=== PATIENT | female | born 1995 | race Caucasian/White ===

== ENCOUNTER → 2016-08-07 | Outpatient (CLI) | payer OTHER ==
[2016-08-07 18:11] LABS: BASO % 0.1 % (0.0-1.0); EOS # 0.1 K/mm3 (0.0-0.50); EOS % 0.6 % (0.0-3.0); LARGE UNSTAINED CELL # 0.2 K/mm3 (0.0-0.4); LARGE UNSTAINED CELL % 1.4 % (0.0-4.0); LYMPH # 1.9 K/mm3 (1.5-6.5); LYMPH % 14.3 % (24.0-44.0); MEAN CORPUSCULAR HEMOGLOBIN 27.2 pg (27.0-33.0); MEAN CORPUSCULAR HGB CONC 32.7 g/dl (32.0-36.5); MEAN CORPUSCULAR VOLUME 83.2 fl (80.0-96.0); MONO # 0.5 K/mm3 (0.0-0.8); MONO % 3.9 % (0.0-5.0); NEUTROPHILS # 10.3 K/mm3 (1.8-7.7); NEUTROPHILS % 79.6 % (36.0-66.0); PLATELET COUNT, AUTOMATED 275 k/mm3 (150-450); RED CELL DISTRIBUTION WIDTH 13.7 % (11.5-14.5); WHITE BLOOD COUNT 12.9 K/mm3 (4.0-10.0)
== END ==
LOC: M SMT 13:27
PROVIDERS: ATTEND Advanced Practice Midwife
DX: Z36 Encounter for antenatal screening of mother (principal); Z34.83 Encounter for supervision of other normal pregnancy, third trimester

== ENCOUNTER → 2016-10-08 | Outpatient (REF) | payer MEDICAID | LOC: M LAB REF 16:52 | PROVIDERS: ATTEND Advanced Practice Midwife | DX: Z34.83 Encounter for supervision of other normal pregnancy, third trimester (principal) ==

== ENCOUNTER 2016-11-06 04:42 | Inpatient (IN) | payer OTHER ==
[~2016-11-06] VITALS: Ht 160 cm; Wt 94.0 kg
[2016-11-06] VITALS (25 sets, daily range): BP systolic 112–148; BP diastolic 63–99
[2016-11-06] MEDS ORDERED: PREN1CHW4 PO (04:55)
[2016-11-06] MEDS ORDERED: miSOPROStol 50 MCG 1/2 TAB (S0191) PO SCH (09:00)
[2016-11-06 09:34] LABS: MEAN CORPUSCULAR HEMOGLOBIN 24.8 pg (27.0-33.0); MEAN CORPUSCULAR HGB CONC 32.2 g/dl (32.0-36.5); MEAN CORPUSCULAR VOLUME 76.8 fl (80.0-96.0); RED CELL DISTRIBUTION WIDTH 15.6 % (11.5-14.5); WHITE BLOOD COUNT 17.3 K/mm3 (4.0-10.0)
[2016-11-06] MEDS ORDERED: PENICILLIN G POTASSIUM IV 5 MU in D5W MINI-BAG PLUS 100 ML IV ONE (11:15)
[2016-11-06] MEDS ORDERED: FENTANYL 2MCG/ML ROPIVACAINE 0.2% IN 0.9% NACL 200ML IVBAG As Ordered ONE (12:25)
[2016-11-06] MEDS ORDERED: FENTANYL/ROPIVACAINE/NACL BAG 200 ML EPIDURAL SCH (13:30)
[2016-11-06] MEDS ORDERED: ONDANSETRON 4MG/2ML VIAL (J2405) IV PRN ×2 (13:30→22:30)
[2016-11-06] MEDS ORDERED: ePHEDrine SULFATE 25 MG/5 ML(5MG/ML) SYRINGE IV PRN (13:30)
[2016-11-06] MEDS ORDERED: NALOXONE INJ 0.4 MG/1 ML VIAL (J2310) IV PRN (13:30)
[2016-11-06] MEDS ORDERED: LACTATED RINGER'S 1000 ML IV PRN (13:30)
[2016-11-06] MEDS ORDERED: diphenhydrAMINE INJ 50MG/ML VIAL (J1200) IV PRN (13:30)
[2016-11-06] MEDS ORDERED: EPIDURAL COMMENT XX SCH (13:30)
[2016-11-06] MEDS ORDERED: EPIDURAL/PCA KEYS XX PRN (13:30)
[2016-11-06] MEDS ORDERED: REFRIGERATOR IV KEYS XX PRN (13:30)
[2016-11-06] MEDS ORDERED: OXYTOCIN DRIP 30 UNITS in APPROPRIATE DILUENT 1 EA IV SCH (13:45)
[2016-11-06] MEDS: PENICILLIN G POTASSIUM IV 2.5 MU in D5W 100 ML IV SCH ×2 (15:18→20:55)
[2016-11-06] MEDS: LR 1,000 ML IV SCH ×3 (15:19→20:55)
[2016-11-06] MEDS ORDERED: ceFAZolin 2 GM/D5W 50 ML IV BAG (J0690) As Ordered ONE (16:31)
[2016-11-06] MEDS ORDERED: BICITRA 30ML SOLN UDC As Ordered ONE (16:32)
[2016-11-06] MEDS ORDERED: OXYTOCIN 30 UNITS IN 0.9% NaCl 500ML IV BAG (J2590) As Ordered ONE (20:45)
--- NOTE | 2016-11-06 21:26 | HPE ---
DATE OF ADMISSION: 11/06/2016 A 21-year-old 1, para 0 female at 40 and 0/7 weeks gestation by last menstrual period (LMP), consistent with 9-week ultrasound, estimated date of confinement (EDC) 11/06/2016, presents with regular contractions and pelvic discomfort. She was noted upon evaluation to have occasional decelerations of heart rate so she was kept for observation. COURSE: The patient initiated care at 13 weeks gestation on 05/06/2016. Her blood pressure was 130/86, weight 192. course significant for depression, and she was restarted on Zoloft during the . The remainder of her course was unremarkable. MEDICAL HISTORY: Noncontributory. SURGICAL HISTORY: 1. Back surgery. 2. Tonsillectomy. ALLERGIES: SULFA. SOCIAL HISTORY: The father of the baby is involved. The patient denies cigarettes, alcohol, or drug use. FAMILY HISTORY: Noncontributory. PHYSICAL EXAMINATION: Blood pressure 134/80. She appears mildly uncomfortable. Head and neck exam: Normal. Lungs: Clear. Heart: Regular rate and rhythm. Abdomen: Nontender, gravid. heart tones: Category 1. Cervix: 2 cm, 80%, -2, vertex. Extremities: Nontender. LABORATORY: Blood type A+, rubella immune, RPR nonreactive. Hepatitis B and C negative. HIV negative. GBS positive. ASSESSMENT: A 21-year-old 1, para 0 at 40 and 0/7 weeks gestation, presents with contractions. The patient is not in labor; however, we are going to commence with labor induction. The patient did have an episode of nonreassuring tracing which has resolved. The patient was admitted on 11/06/2016. Risks of induction were discussed.
[2016-11-06] MEDS ORDERED: fentaNYL 100 MCG/2 ML INJECTION (J3010) As Ordered ONE (21:38)
[2016-11-06] MEDS ORDERED: LIDOCAINE 2% W/EPIN INJ 20ML **PRES FREE As Ordered ONE (21:38)
[2016-11-06] MEDS ORDERED: DOCUSATE SODIUM 100 MG CAP PO PRN (22:30)
[2016-11-06] MEDS ORDERED: ACETAMINOPHEN 500 MG TAB PO PRN (22:30)
[2016-11-06] MEDS ORDERED: DIBUCAINE 1% OINTMENT 30GM TOP PRN (22:30)
[2016-11-06] MEDS ORDERED: MEASLES,MUMPS,RUBELLA VACCINE INJ (MMR-II) (90707) SC SCH (22:30)
[2016-11-06] MEDS ORDERED: RHOGAM 300 MCG (1500 IU) INJ (J2790) IM SCH (22:30)
[2016-11-06] MEDS ORDERED: METHYLERGONOVINE MALEATE 0.2 MG TAB PO PRN (22:30)
[2016-11-06] MEDS ORDERED: OXYTOCIN DRIP 30 UNITS in APPROPRIATE DILUENT 1 EA IV ONE (22:30)
[2016-11-06 23:18] LABS: CORD GAS ABE V -6.1; CORD GAS HCO3 V 21.4 MEQ/L; CORD GAS O2 SAT V 60.4 %; CORD GAS PH V 7.259 UNITS; CORD GAS PO2 V 27.8 mmHg; CORD GAS SBC V 18.6 MEQ/L; CORD GAS TCO2 V 22.9 MEQ/L
[2016-11-06 23:23] LABS: CORD GAS ABE A -4.4; CORD GAS HCO3 A 25.8 MEQ/L; CORD GAS O2 SAT A < 15.0 %; CORD GAS PCO2 A 68.6 mmHg; CORD GAS PH A 7.193 UNITS; CORD GAS PO2 A 10.9 mmHg; CORD GAS TCO2 A 27.9 MEQ/L
[2016-11-07 00:55] VITALS: BP 110/57
--- NOTE | 2016-11-07 01:52 | DN ---
DATE: 11/06/2016 PREDELIVERY DIAGNOSIS: A 40 weeks gestation. POSTDELIVERY DIAGNOSIS: Delivered. PROCEDURE: Spontaneous vaginal delivery. ANIMAL TECHNICIAN: Dr. Rajat Albright ANESTHESIA: Epidural. ESTIMATED BLOOD LOSS: 300 mL. FINDINGS: A 6-pound 3-ounce female infant, scores 7 and 9. DELIVERY SUMMARY: After a 30-minute second stage, patient had a spontaneous delivery of a 6-pound 3-ounce female infant, scores 7 and 9, under epidural anesthesia. Nuchal cord times one was reduced. Light meconium was present. Neonatology was present in the room for delivery. Shoulders delivered spontaneously with ease. The infant cried spontaneously and handed to the mother. The cord was then clamped and cut. Placenta delivered spontaneously and appeared to be intact. Patient received intravenous (IV) Pitocin immediately after delivery of the placenta. First-degree perineal laceration was repaired with #3-0 chromic in the usual fashion. Sponge and needle counts were correct.
[2016-11-07 05:48] VITALS: BP 137/79
[2016-11-07] MEDS: PRENATAL VITAMIN TAB PO SCH (08:53)
[2016-11-07 09:13] VITALS: BP 120/72
[2016-11-07] MEDS: IBUPROFEN 800 MG TAB PO PRN (18:17)
[2016-11-07 18:19] VITALS: BP 105/51
[2016-11-08] MEDS: IBUPROFEN 800 MG TAB PO PRN (05:24)
[2016-11-08 06:48] VITALS: BP 136/84
[2016-11-08] MEDS: PRENATAL VITAMIN TAB PO SCH (08:45)
[2016-11-08] MEDS ORDERED: ACET50TA PO (11:18)
[2016-11-08] MEDS ORDERED: IBUP-1114 PO (11:20)
== END 2016-11-08 12:25 | disposition home or self-care (01) | DRG 560 ==
LOC: M LDO 04:42 → M LDI 08:16 → M OBS 11-07 00:08
PROVIDERS: ADMIT Specialist; ATTEND Specialist
PROC: 10E0XZZ Delivery of Products of Conception, External Approach (ICD-10-PCS; principal; 2016-11-06)
PROC: 0HQ9XZZ Repair Perineum Skin, External Approach (ICD-10-PCS; 2016-11-06)
PROC: 10907ZC Drainage of Amniotic Fluid, Therapeutic from Products of Conception, Via Natural or Artificial Opening (ICD-10-PCS; 2016-11-06)
PROC: 3E0P7GC Introduction of Other Therapeutic Substance into Female Reproductive, Via Natural or Artificial Opening (ICD-10-PCS; 2016-11-06)
DX: O76 Abnormality in fetal heart rate and rhythm complicating labor and delivery (principal); O99.344 Other mental disorders complicating childbirth; F32.9 Major depressive disorder, single episode, unspecified; O99.824 Streptococcus B carrier state complicating childbirth; O77.0 Labor and delivery complicated by meconium in amniotic fluid; O69.81X0 Labor and delivery complicated by cord around neck, without compression, not applicable or unspecified; O70.0 First degree perineal laceration during delivery; Z3A.40 40 weeks gestation of pregnancy; Z37.0 Single live birth

== ENCOUNTER → 2017-07-28 | Outpatient (CLI) | payer OTHER | LOC: M CLY 15:07 | DX: M25.551 Pain in right hip (principal); M54.9 Dorsalgia, unspecified | CPT/HCPCS: 72072 ==

== ENCOUNTER → 2017-10-26 | Outpatient (REF) | payer OTHER ==
[2017-10-26 17:58] LABS: BASO % 0.4 % (0.0-1.0); EOS # 0.2 10^3/uL (0.0-0.50); EOS % 1.4 % (0.0-3.0); HEMATOCRIT 40.9 % (36.0-47.0); HEMOGLOBIN 13.1 g/dl (12.0-15.5); IMMATURE GRANULOCYTE % 0.3 % (0-3.0); LYMPH # 2.9 10^3/uL (1.5-6.5); MEAN CORPUSCULAR HEMOGLOBIN 25.3 pg (27.0-33.0); MONO # 0.6 10^3/uL (0.0-0.8); MONO % 5.1 % (0.0-5.0); NEUTROPHILS # 7.5 10^3/uL (1.8-7.7); NEUTROPHILS % 66.8 % (36.0-66.0); PLATELET COUNT, AUTOMATED 297 10^3/uL (150-450); RED BLOOD COUNT 5.18 10^6/uL (4.00-5.40); RED CELL DISTRIBUTION WIDTH 14.7 % (11.5-14.5); WHITE BLOOD COUNT 11.2 10^3/uL (4.0-10.0)
[2017-10-26 20:04] LABS: CHLAMYDIA DNA AMPLIFICATION NEGATIVE (NEGATIVE); GC DNA AMPLIFICATION NEGATIVE (NEGATIVE)
== END ==
LOC: M LABDRAWC 16:24
DX: Z3A.10 10 weeks gestation of pregnancy (principal); Z34.81 Encounter for supervision of other normal pregnancy, first trimester

== ENCOUNTER → 2017-11-23 | Outpatient (REF) | payer OTHER | LOC: M LAB REF 13:00 | DX: Z34.82 Encounter for supervision of other normal pregnancy, second trimester (principal) ==

== ENCOUNTER → 2017-12-24 | Outpatient (CLI) | payer OTHER | LOC: M SMT 12:56 | DX: Z34.82 Encounter for supervision of other normal pregnancy, second trimester (principal); Z3A.19 19 weeks gestation of pregnancy | CPT/HCPCS: 36415 ==

== ENCOUNTER → 2018-02-19 | Outpatient (CLI) | payer OTHER ==
[2018-02-19 13:03] LABS: BASO % 0.3 % (0.0-1.0); EOS # 0.2 10^3/uL (0.0-0.50); EOS % 1.7 % (0.0-3.0); HEMATOCRIT 36.9 % (36.0-47.0); HEMOGLOBIN 11.9 g/dl (12.0-15.5); IMMATURE GRANULOCYTE % 0.9 % (0-3.0); LYMPH # 2.1 10^3/uL (1.5-6.5); LYMPH % 17.8 % (24.0-44.0); MEAN CORPUSCULAR HEMOGLOBIN 27.7 pg (27.0-33.0); MEAN CORPUSCULAR HGB CONC 32.2 g/dl (32.0-36.5); MEAN CORPUSCULAR VOLUME 85.8 fl (80.0-96.0); MONO # 0.6 10^3/uL (0.0-0.8); MONO % 5.1 % (0.0-5.0); NEUTROPHILS # 8.7 10^3/uL (1.8-7.7); NEUTROPHILS % 74.2 % (36.0-66.0); PLATELET COUNT, AUTOMATED 206 10^3/uL (150-450); RED CELL DISTRIBUTION WIDTH 14.7 % (11.5-14.5); WHITE BLOOD COUNT 11.7 10^3/uL (4.0-10.0)
[2018-02-19 13:50] LABS: GLUCOSE CHALLENGE TEST 1 HOUR 93 MG/DL (LESS THAN 140)
== END ==
LOC: M SMT 11:28
DX: Z34.83 Encounter for supervision of other normal pregnancy, third trimester (principal); Z36.89 Encounter for other specified antenatal screening
CPT/HCPCS: 82950

== ENCOUNTER → 2018-03-02 | Outpatient (CLI) | payer OTHER | LOC: M RAD 12:28 | DX: O36.8121 Decreased fetal movements, second trimester, fetus 1 (principal); Z3A.27 27 weeks gestation of pregnancy | CPT/HCPCS: 76815 ==

== ENCOUNTER → 2018-04-21 | Outpatient (REF) | payer OTHER | LOC: M LAB REF 17:27 | DX: Z34.83 Encounter for supervision of other normal pregnancy, third trimester (principal) ==

== ENCOUNTER 2018-05-15 09:13 | Inpatient (IN) | payer OTHER ==
[2018-05-15] MEDS: PENICILLIN G POTASSIUM IV 5 MU in D5W MINI-BAG PLUS 100 ML IV (12:11)
[2018-05-15 12:12] LABS: HEMATOCRIT 39.7 % (36.0-47.0); HEMOGLOBIN 12.8 g/dl (12.0-15.5); MEAN CORPUSCULAR HEMOGLOBIN 25.5 pg (27.0-33.0); MEAN CORPUSCULAR HGB CONC 32.2 g/dl (32.0-36.5); MEAN CORPUSCULAR VOLUME 79.2 fl (80.0-96.0); PLATELET COUNT, AUTOMATED 199 10^3/uL (150-450); RED BLOOD COUNT 5.01 10^6/uL (4.00-5.40); RED CELL DISTRIBUTION WIDTH 14.4 % (11.5-14.5); WHITE BLOOD COUNT 13.3 10^3/uL (4.0-10.0)
[2018-05-15] MEDS: LR 1,000 ML IV ×2 (12:51→14:24)
[2018-05-15] MEDS: ONDANSETRON 4MG/2ML VIAL (J2405) IV (12:51)
[2018-05-15] MEDS ORDERED: FENTANYL 2MCG/ML ROPIVACAINE 0.2% IN 0.9% NACL 200ML IVBAG As Ordered (14:03)
[2018-05-15] MEDS: FENTANYL/ROPIVACAINE/NACL BAG 200 ML EPIDURAL (14:44)
[2018-05-15] MEDS ORDERED: LACTATED RINGER'S 1000 ML IV (15:00)
[2018-05-15] MEDS ORDERED: ePHEDrine SULFATE 25 MG/5 ML(5MG/ML) SYRINGE IV (15:00)
[2018-05-15] MEDS ORDERED: ONDANSETRON 4MG/2ML VIAL (J2405) IV ×2 (15:00→17:15)
[2018-05-15] MEDS ORDERED: NALOXONE INJ 0.4 MG/1 ML VIAL (J2310) IV (15:00)
[2018-05-15] MEDS ORDERED: EPIDURAL COMMENT XX (15:00)
[2018-05-15] MEDS ORDERED: EPIDURAL/PCA KEYS XX (15:00)
[2018-05-15] MEDS ORDERED: diphenhydrAMINE INJ 50MG/ML VIAL (J1200) IV (15:00)
[2018-05-15] MEDS ORDERED: REFRIGERATOR IV KEYS XX (15:00)
[2018-05-15] MEDS: PENICILLIN G POTASSIUM IV 2.5 MU in APPROPRIATE DILUENT 1 EA IV (15:59)
[2018-05-15] MEDS ORDERED: OXYTOCIN 30 UNITS IN 0.9% NaCl 500ML IV BAG (J2590) As Ordered (16:16)
[2018-05-15] MEDS ORDERED: MOM 30ML SUSPENSION UDC PO (17:15)
[2018-05-15] MEDS ORDERED: ANUSOL HC CREAM 30GM TOP (17:15)
[2018-05-15] MEDS ORDERED: DOCUSATE SODIUM 100 MG CAP PO (17:15)
[2018-05-15] MEDS ORDERED: METHYLERGONOVINE MALEATE 0.2 MG TAB PO (17:15)
[2018-05-15] MEDS ORDERED: DIBUCAINE 1% OINTMENT 30GM TOP (17:15)
[2018-05-15] MEDS: OXYTOCIN DRIP 30 UNITS in APPROPRIATE DILUENT 1 EA IV (17:30)
[2018-05-16] MEDS: ACETAMINOPHEN 500 MG TAB PO (00:34)
[2018-05-16] MEDS: RHOGAM 300 MCG (1500 IU) INJ (J2790) IM (07:15)
[2018-05-16] MEDS: MEASLES,MUMPS,RUBELLA VACCINE INJ (MMR-II) (90707) SC (07:15)
[2018-05-16] MEDS: PRENATAL VITAMINS CHEWABLE TABLET PO (07:37)
[2018-05-16] MEDS: IBUPROFEN 800 MG TAB PO ×2 (07:37→19:22)
[2018-05-17] MEDS: IBUPROFEN 800 MG TAB PO (05:50)
[2018-05-17] MEDS: PRENATAL VITAMINS CHEWABLE TABLET PO (09:06)
== END 2018-05-17 17:45 | disposition home or self-care (01) | DRG 560 ==
LOC: M LDO 09:13 → M LDI 11:26 → M OBS 17:56
PROVIDERS: Obstetrics & Gynecology
PROC: 10E0XZZ Delivery of Products of Conception, External Approach (ICD-10-PCS; principal; 2018-05-15)
DX: O99.824 Streptococcus B carrier state complicating childbirth (principal); Z88.2 Allergy status to sulfonamides; Z37.0 Single live birth; Z3A.39 39 weeks gestation of pregnancy

== ENCOUNTER → 2018-09-28 | Outpatient (REF) | payer OTHER ==
[~2018-09-28] MED LIST: COLA100C5 PO; IBUP-1114 PO; MAPA500T2 PO; MOM30SS PO; PREN1CHW4 PO; PRENTAB9 PO
[2018-09-29 00:01] LABS: CHLAMYDIA DNA AMPLIFICATION NEGATIVE (NEGATIVE); GC DNA AMPLIFICATION NEGATIVE (NEGATIVE)
== END ==
LOC: M LAB REF 17:25
PROVIDERS: ATTEND Advanced Practice Midwife
DX: Z12.4 Encounter for screening for malignant neoplasm of cervix (principal); Z11.3 Encounter for screening for infections with a predominantly sexual mode of transmission

== ENCOUNTER → 2019-03-18 | Outpatient (REF) | payer OTHER ==
[2019-03-18 11:42] LABS: HEMATOCRIT 44.2 % (36.0-47.0); MEAN CORPUSCULAR HEMOGLOBIN 27.1 pg (27.0-33.0); MEAN CORPUSCULAR HGB CONC 31.7 g/dl (32.0-36.5); MEAN CORPUSCULAR VOLUME 85.7 fl (80.0-96.0); PLATELET COUNT, AUTOMATED 296 10^3/uL (150-450); RED BLOOD COUNT 5.16 10^6/uL (4.00-5.40); WHITE BLOOD COUNT 7.5 10^3/uL (4.0-10.0)
[2019-03-18 12:51] LABS: ALBUMIN 3.9 GM/DL (3.2-5.2); ALT/SGPT 26 U/L (12-78); BILIRUBIN,TOTAL 0.5 MG/DL (0.2-1.0); BLOOD UREA NITROGEN 17 MG/DL (7-18); CALCIUM LEVEL 9.3 MG/DL (8.5-10.1); CARBON DIOXIDE LEVEL 29 MEQ/L (21-32); CHLORIDE LEVEL 107 MEQ/L (98-107); CHOLESTEROL LEVEL 211 MG/DL (<200); CHOLESTEROL RISK RATIO 4.586 (<5); CREATININE FOR GFR 0.65 MG/DL (0.55-1.30); GLOMERULAR FILTRATION RATE > 60.0 (>60); GLUCOSE, FASTING 82 MG/DL (70-100); HDL CHOLESTEROL 46 MG/DL (>40); LDL CHOLESTEROL 145 MG/DL (<100); NON-HDL-C 165 MG/DL; POTASSIUM SERUM 4.3 MEQ/L (3.5-5.1); SODIUM LEVEL 141 MEQ/L (136-145); TOTAL 25(OH) VITAMIN D 20.6 NG/ML (30.0-100.0); TRIGLYCERIDES LEVEL 102 MG/DL (<150)
== END ==
LOC: M SFHCCLAY 08:14
PROVIDERS: ATTEND Nurse Practitioner Family
DX: K21.9 Gastro-esophageal reflux disease without esophagitis (principal); F32.9 Major depressive disorder, single episode, unspecified; Z13.6 Encounter for screening for cardiovascular disorders; Z13.21 Encounter for screening for nutritional disorder

== ENCOUNTER → 2019-08-31 | Outpatient (REF) | payer OTHER ==
[2019-08-31 11:13] LABS: CHOLESTEROL RISK RATIO 4.84 (<5)
== END ==
LOC: M SFHCCLAY 07:30
PROVIDERS: ATTEND Nurse Practitioner Family
DX: E78.5 Hyperlipidemia, unspecified (principal); E55.9 Vitamin D deficiency, unspecified

== ENCOUNTER → 2020-01-05 | Outpatient (REF) | payer OTHER ==
[2020-01-05 14:07] LABS: HEMATOCRIT 42.4 % (36.0-47.0); HEMOGLOBIN 13.7 g/dl (12.0-15.5); MEAN CORPUSCULAR HGB CONC 32.3 g/dl (32.0-36.5); MEAN CORPUSCULAR VOLUME 83.6 fl (80.0-96.0); PLATELET COUNT, AUTOMATED 230 10^3/uL (150-450); RED BLOOD COUNT 5.07 10^6/uL (4.00-5.40); WHITE BLOOD COUNT 8.7 10^3/uL (4.0-10.0)
[2020-01-05 14:30] LABS: GLUCOSE CHALLENGE TEST 1 HOUR 54 MG/DL (LESS THAN 140)
[2020-01-05 16:57] LABS: CHLAMYDIA DNA AMPLIFICATION NEGATIVE (NEGATIVE); GC DNA AMPLIFICATION NEGATIVE (NEGATIVE)
[2020-01-06 10:36] LABS: HEPATITIS C VIRUS ABY INDEX 0.2 INDEX (<0.8); HIV 1&2 SCREEN CENTAUR NEGATIVE (NEGATIVE)
== END ==
LOC: M PLALAB 11:10
PROVIDERS: ATTEND Advanced Practice Midwife
DX: O99.211 Obesity complicating pregnancy, first trimester (principal)

== ENCOUNTER → 2020-02-24 | Outpatient (CLI) | payer OTHER ==
--- NOTE | 2020-04-06 10:17 | REP ---
OBSTETRIC SONOGRAPHY HISTORY: Supervision of for anatomy. This report was delayed due to a protracted episode of computer network disruption experienced by this facility. FINDINGS: Scanning through the gravid uterus demonstrates a viable single intrauterine gestation in a variable lie. The placenta is anterior grade 1 and without evidence of placenta previa or abruption. Amniotic fluid is subjectively normal. Closed cervical length measured transabdominally is 4.8 cm. Scan quality is inhibited by maternal body habitus. The following anatomic structures are identified and felt to be unremarkable: cisterna magna, cavum septum, thalami, spine, left- sided stomach, urinary bladder, three-vessel cord, abdominal wall cord insertion, upper and lower extremities, face, and lips. The following additional anatomic structures are less than optimally seen due to position and maternal body habitus: kidneys, four chamber heart with left and right ventricular outflow tract views. BIOMETRY CHART: BPD 42 mm 18 weeks 6 days Head Circumference 163 mm 19 weeks 1 day Abdominal Circumference 143 mm 19 weeks 5 days Femur Length 32 mm 20 weeks 0 days Humeral Length 32 mm 20 weeks 5 days Estimated Weight 307 g 36th percentile IMPRESSION: Viable single intrauterine gestation 19 weeks 3 days by todays composite criteria. Estimated date of delivery (TORRI) by todays sonography 07/27/2020. Four chamber heart, ventricular outflow tract views, and kidneys less than optimally seen. MTDD
== END ==
LOC: M WHC 08:19
PROVIDERS: ATTEND Advanced Practice Midwife
DX: O99.212 Obesity complicating pregnancy, second trimester (principal); Z3A.19 19 weeks gestation of pregnancy

== ENCOUNTER → 2020-03-30 | Outpatient (CLI) | payer OTHER ==
--- NOTE | 2020-04-10 17:13 | REP ---
OBSTETRIC SONOGRAPHY HISTORY: Supervision of . Follow-up anatomy. COMPARISON: 02/24/2020. FINDINGS: Scanning through the gravid uterus demonstrates a single living intrauterine fetus in a breech lie. motion is observed and heart rate is recorded at 147 beats per minute. An anterior grade 1 placenta is seen without evidence of previa or abruption. Amniotic fluid is subjectively normal. Closed cervical length is 3.7 cm viewed transabdominally. Exam quality was inhibited to some degree by maternal body habitus. kidneys, four chamber heart, both right and left ventricular outflow tract views were achieved today and are felt to be unremarkable. BIOMETRY CHART: BPD 5.9 cm 24 weeks 0 days Head circumference 23.1 cm 25 weeks 1 day Abdominal circumference 19.5 cm 24 weeks 2 days Femur length 4.7 cm 25 weeks 3 days Humeral length 4.6 cm 27 weeks 2 days AC/HC ratio 1.18 Normal Cephalic index 0.68 Normal Estimated weight 731 grams, 1 pound 9 ounces, 51st percentile for 24 weeks 6 days. IMPRESSION: Viable single intrauterine gestation at 25 weeks 2 days by todays composite criteria. Estimated date of delivery (TORRI) by todays sonography 07/11/2020. kidneys, four chamber heart, and right and left ventricular outflow tract views are felt to be unremarkable today. MTDD
== END ==
LOC: M WHC 15:42
PROVIDERS: ATTEND Advanced Practice Midwife
DX: Z34.82 Encounter for supervision of other normal pregnancy, second trimester (principal); Z3A.25 25 weeks gestation of pregnancy

== ENCOUNTER → 2020-05-01 | Outpatient (CLI) | payer OTHER ==
[2020-05-01 10:35] LABS: BASO % 0.3 % (0.0-1.0); EOS # 0.2 10^3/uL (0.0-0.5); EOS % 1.9 % (0.0-3.0); HEMATOCRIT 37.1 % (36.0-47.0); HEMOGLOBIN 11.3 g/dl (12.0-15.5); LYMPH # 1.7 10^3/uL (1.5-5.0); LYMPH % 17.3 % (24.0-44.0); MEAN CORPUSCULAR HEMOGLOBIN 25.5 pg (27.0-33.0); MEAN CORPUSCULAR HGB CONC 30.5 g/dl (32.0-36.5); MEAN CORPUSCULAR VOLUME 83.6 fl (80.0-96.0); MONO # 0.6 10^3/uL (0.0-0.8); MONO % 6.7 % (0.0-5.0); NEUTROPHILS % 73.3 % (36.0-66.0); PLATELET COUNT, AUTOMATED 202 10^3/uL (150-450); RED BLOOD COUNT 4.44 10^6/uL (4.00-5.40); WHITE BLOOD COUNT 9.6 10^3/uL (4.0-10.0)
== END ==
LOC: M PLALAB 08:06
PROVIDERS: ATTEND Advanced Practice Midwife
DX: Z34.83 Encounter for supervision of other normal pregnancy, third trimester (principal); Z3A.00 Weeks of gestation of pregnancy not specified

== ENCOUNTER 2020-07-08 23:28 | Inpatient (IN) | payer OTHER ==
[~2020-07-08] VITALS: Ht 160 cm; Wt 93.6 kg
[2020-07-08 23:44] VITALS: BP 132/75
[2020-07-09] VITALS (35 sets, daily range): BP systolic 99–139; BP diastolic 57–83
[2020-07-09 01:12] LABS: HEMATOCRIT 31.7 % (36.0-47.0); HEMOGLOBIN 9.5 g/dl (12.0-15.5); MEAN CORPUSCULAR HEMOGLOBIN 21.9 pg (27.0-33.0); MEAN CORPUSCULAR VOLUME 73.2 fl (80.0-96.0); PLATELET COUNT, AUTOMATED 189 10^3/uL (150-450); RED BLOOD COUNT 4.33 10^6/uL (4.00-5.40); WHITE BLOOD COUNT 9.4 10^3/uL (4.0-10.0)
[2020-07-09] MEDS ORDERED: miSOPROStol 50 MCG 1/2 TAB (S0191) SL SCH (01:15)
[2020-07-09] MEDS ORDERED: VITAD400CA FT (01:19)
[2020-07-09] MEDS ORDERED: OMEP40CA97 PO (01:19)
--- NOTE | 2020-07-09 01:23 | HPEPDOC ---
Obstetrical History & Physical General Date of Admission Jul 09, 2020 at 00:43 History of Present Illness 25 yo female at 39 2/7 weeks by 9 week ultrasound (EDC=07/14/2020) presents with contractions all day. They increased in intensity. No vaginal bleeding. good movement. Chief Complaint: Contractions, term Information Provided By: Patient Age: 25 : 3 Term: 2 Care Care: Good Care Dating Final EDC: Jul 14, 2020 Final EDC by: 1st trimester (US) Past Medical History Past Obstetrical History : Past Obstetrical History: Multigravida Past Medical History Medical History OB history: TSVD x 2 Medical hx: none Surgery: Back surgery Social History Marital Status: Family situation: Spouse/partner home Allergies Coded Allergies: Sulfa (Sulfonamide Antibiotics) (Verified Allergy, Intermediate, RASH, 07/09/20) Medications Scheduled No.137/Iron/Folic Acd ( Vitamin Tablet) 1 Tab Tab, 1 TAB PO DAILY Scheduled PRN Acetaminophen (Mapap) 500 Mg Tab, 1,000 MG PO Q6HP PRN for PAIN SCALE 1-5 Docusate Sodium (Colace) 100 Mg Cap, 100 MG PO QHSP PRN for CONSTIPATION Ibuprofen (Ibuprofen) 400 Mg Tab, 800 MG PO Q8HP PRN for PAIN SCALE 6-10 Milk Of Magnesia (Milk of Magnesia) 30 Ml Conc, 1 TBS PO DAILYPRN PRN for CONSTIPATION Physical Examination Physical Examination GENERAL: Alert and oriented times three. BREAST: . ABDOMEN: Gravid and non-tender to touch. FETUS: Is vertex (VTX) by sterile vaginal examination (SVE), fetus is vertex (VTX) by Santiago. HEART RATE: Regular rate and rhythm. LUNGS: Clear to auscultation (CTA). EXTREMITIES: No edema. No clonus. Deep tendon reflexes (DTRs) + . Vital Signs/I&O Vital Signs Date Time Temp Pulse Resp B/P (MAP) Pulse Ox O2 Delivery O2 Flow Rate FiO2 07/08/20 23:44 97.2 70 16 132/75 (94) Laboratory Data 24H LABS Laboratory Tests 2 07/09/20 00:58: Serology Scanned Report Hepatitis B Testing 07/09/20 01:00: Nucleated Red Blood Cells % (auto) 0.0 CBC/BMP Laboratory Tests 12/28/20 01:00 Pertinent Laboratoy Data Group B Streptococcus: Positive Vaginal Examination Dilation: 2cm Effacement: 50% Station: -2 Cervical Consistency: Medium Cervical Position: Posterior Presentation: Cephalic presentation Assessment Variability: Moderate Accelerations: Positive Decelerations: None Tocometer Contractions: Yes Frequency: every 1-5 min. Duration: less than 60 seconds Strength: palpated as mild Assessment/Plan Assessment Pt is a 25-year-old (G)3 para (P)2 at 39+2 weeks by 9-week ultrasound presents to Labor and Delivery (L&D) with contractions. Pt found not to be in active labor. Plan Admit and orient. Fur Dresser and consent. Group B Streptococcus (GBS) negative. Labs and intravenous (IV) per unit protocol. Counseled on induction of labor (IOL). Anticipate [normal spontaneous delivery (). C-S as appropriate. OSCAR LANGE MD Jul 09, 2020 01:23
[2020-07-09] MEDS ORDERED: PENICILLIN G POTASSIUM IV 5 MU in D5W MINI-BAG PLUS 100 ML IV STA (07:56)
[2020-07-09] MEDS ORDERED: LR 1,000 ML IV SCH (08:05)
--- NOTE | 2020-07-09 08:06 | IPNPDOC ---
Obstetrical Progress Note Date of Service Jul 09, 2020 Subjective Mark is starting to feel some contractions more intensely. Reports active movement. Denies LOF, vaginal bleeding. Objective Vital Signs Date Time Temp Pulse Resp B/P (MAP) Pulse Ox O2 Delivery O2 Flow Rate FiO2 07/09/20 06:26 102 18 105/63 (77) 07/08/20 23:44 97.2 Assessment Heart Rate (FHR): 120 Variability: Moderate Accelerations: None Decelerations: None Heart Rate Tracing: Category I Tocometer Contractions: Yes Frequency: irregular, every 3-7 min. Duration: greater than 60 seconds Strength: palpated as mild, resting tone palp/soft Assessment and Plan Age: 25 : 3 Term: 2 Pre-term: 0 Abortions: 0 Livin Weeks & Days 39.2 Status: Reassuring Group B Streptococcus: Positive Anticipate: Vaginal Delivery Additional Comments Plan to start GBS Prophylaxis and Pitocin. Clear liquid diet. Activity as tolerated. Continuous EFM. Patient agreeable to plan. NEYDA DURHAM CNM Jul 09, 2020 08:06
[2020-07-09] MEDS ORDERED: OXYTOCIN DRIP 30 UNITS in IV 1 EA IV SCH ×2 (08:15→14:56)
[2020-07-09] MEDS ORDERED: FENTANYL 2MCG/ML ROPIVACAINE 0.2% IN 0.9% NACL 100ML IVBAG As Ordered ONE (10:02)
[2020-07-09] MEDS ORDERED: NALOXONE INJ 0.4MG/1ML VIAL (J2310 PER 1MG) IV PRN (10:30)
[2020-07-09] MEDS ORDERED: ePHEDrine SULFATE 25 MG/5 ML(5MG/ML) SYRINGE IV PRN (10:30)
[2020-07-09] MEDS ORDERED: ONDANSETRON 4MG/2ML VIAL IV PRN (10:30)
[2020-07-09] MEDS ORDERED: diphenhydrAMINE 50MG/ML VIAL (J1200) IV PRN (10:30)
[2020-07-09] MEDS ORDERED: EPIDURAL COMMENT XX SCH (10:30)
[2020-07-09] MEDS ORDERED: REFRIGERATOR IV KEYS XX PRN (10:30)
[2020-07-09] MEDS ORDERED: EPIDURAL/PCA KEYS XX PRN (10:30)
[2020-07-09] MEDS ORDERED: LACTATED RINGER'S 1000 ML IV PRN (10:30)
[2020-07-09] MEDS ORDERED: FENTANYL/ROPIVACAINE/NACL BAG 100 ML EPIDURAL SCH (10:30)
[2020-07-09] MEDS ORDERED: PENICILLIN G POTASSIUM IV 2.5 MU in IV 1 EA IV SCH (12:00)
--- NOTE | 2020-07-09 13:03 | IPNPDOC ---
Obstetrical Progress Note Date of Service Jul 09, 2020 Subjective Mark is comfortable with her epidural. Denies rectal/vaginal pressure. She has received 2 doses of Penicillin G for GBS prophylaxis. Objective Vital Signs Date Time Temp Pulse Resp B/P (MAP) Pulse Ox O2 Delivery O2 Flow Rate FiO2 07/09/20 11:07 69 16 123/68 (86) 07/09/20 07:48 97.1 Assessment Heart Rate (FHR): 120 Variability: Moderate Accelerations: Positive Decelerations: None Heart Rate Tracing: Category I Tocometer Contractions: Yes Frequency: regular, other (2-3) Duration: greater than 60 seconds Strength: palpated as moderate, resting tone palp/soft Sterile Vaginal Examination Dilation: 4 cm Effacement (%): 80% Station: -1 Cervical Consistency: Soft Cervical Position: Middle Postion/Presentation: Cephalic presentation Assessment and Plan Age: 25 : 3 Term: 2 Pre-term: 0 Abortions: 0 Livin Status: Reassuring Group B Streptococcus: Positive Anticipate: Vaginal Delivery Additional Comments SROM for moderate amount of clear fluid. Continue with Pitocin Pitocin at 12mu/min. NEYDA DURHAM CNM Jul 09, 2020 13:02
--- NOTE | 2020-07-09 14:20 | IPNPDOC ---
Obstetrical Progress Note Date of Service Jul 09, 2020 Subjective Reports feeling intense pressure. Crying with contractions. Objective Vital Signs Date Time Temp Pulse Resp B/P (MAP) Pulse Ox O2 Delivery O2 Flow Rate FiO2 07/09/20 13:35 70 18 125/78 (94) 07/09/20 12:30 97.4 Assessment Heart Rate (FHR): 125 Variability: Moderate Accelerations: Positive Decelerations: Variable Heart Rate Tracing: Category II Tocometer Contractions: Yes Frequency: regular, every 2-2 min. Duration: greater than 60 seconds Strength: palpated as strong, resting tone palp/soft Sterile Vaginal Examination Dilation: 8 cm Effacement (%): 100% Station: +1 Cervical Consistency: Soft (very stretchy) Cervical Position: Anterior Postion/Presentation: Cephalic presentation Assessment and Plan Age: 25 : 3 Term: 2 Pre-term: 0 Abortions: 0 Livin Status: Reassuring Group B Streptococcus: Positive Anticipate: Vaginal Delivery Additional Comments Patient moved to hands and knees to facilitate labor and relieve back pressure. Pitocin at 12mu/min. Anticipate RYLEE. NEYDA DURHAM CNM Jul 09, 2020 14:20
--- NOTE | 2020-07-09 14:53 | DNPDOC ---
[facility] Delivery Note Delivery Note DATE OF DELIVERY: 07/09/20 @ 1424 PREDELIVERY DIAGNOSIS: 39-2/7 weeks' gestation and induction of labor. POST DELIVERY DIAGNOSIS: Delivered. PROCEDURE: Spontaneous vaginal delivery. RADIOLOGY SERVICES MANAGER: Neyda Cornell CNM, NELI and MARISABEL Crisostomo ANESTHESIA: Epidural. ESTIMATED BLOOD LOSS: 150 mL. FINDINGS: 7 pound 15 ounce, 3590g Male , Score 9/9, loose nuchal cord times 1. DELIVERY SUMMARY: Mark is a 25-year-old 3 now para 3-0-0-3 who was admitted to labor and delivery for contractions without cervical change, given her obstetrical history an elective IOL was offered and accepted. She received cytotec x1 then Pitocin was started this morning. Received an epidural at 1043 per her request. She progressed and SROM was at 1244 for moderate amount of clear fluid. She reached full dilation at 1422 and began pushing. head delivered in OA with restitution to ROT. Anterior shoulder and corpus following with good maternal pushing efforts. Loose nuchal cord x1 was reduced with delivery of corpus. placed skin to skin on maternal abdomen, vigorous and crying with stimulation. Placenta delivered spontaneously intact, reynaldo mechanism at 1430. IV Pitocin and fundal massage started, fundus firmed at umbilicus with small flow. Perineum, cervix, and vagina examined for lacerations, bilateral labial and perineal abrasions noted to be hemostatic, no repair needed. Sponges counted and correct, no sharps used. Mark plans to breast and bottle feed infant, initiated after delivery. Parents plan to name him "Louie". Mother and infant left in stable condition. NEYDA CORNELL CNM Jul 09, 2020 14:53
[2020-07-09] MEDS ORDERED: METHYLERGONOVINE MALEATE 0.2 MG TAB PO PRN (15:00)
[2020-07-09] MEDS ORDERED: RHOGAM 300 MCG (1500 IU) INJ (J2790) IM SCH (15:00)
[2020-07-09] MEDS ORDERED: DOCUSATE SODIUM 100MG CAPSULE PO PRN (15:00)
[2020-07-09] MEDS ORDERED: ACETAMINOPHEN TAB 650MG DOSE (2X325MG) PO PRN (15:00)
[2020-07-09] MEDS ORDERED: IBUPROFEN 800 MG TAB PO PRN (15:00)
[2020-07-09] MEDS ORDERED: BENZOCAINE 20% HEMORRHOIDAL OINTMENT 28GM TUBE TOP PRN (15:00)
[2020-07-09] MEDS ORDERED: ANUSOL HC CREAM 30GM TOP PRN (15:00)
[2020-07-09] MEDS ORDERED: MEASLES,MUMPS,RUBELLA VACCINE INJ (MMR-II) (90707) SC SCH (15:00)
[2020-07-09] MEDS ORDERED: ACETAMINOPHEN 500 MG TAB PO PRN (15:00)
[2020-07-09] MEDS ORDERED: IBUPROFEN 600MG TAB PO PRN (15:00)
[2020-07-10 06:00] VITALS: BP 114/67
--- NOTE | 2020-07-10 07:14 | IPNPDOC ---
Progress Note Date of Service: Jul 10, 2020 Day#: 1 Progress Note SUBJECT: Mark is a 25-year-old 3 now Para 3-0-0-3 status post uncompl icated spontaneous vaginal delivery at 39-2/7 weeks', doing well day #1. She has been ambulating, voiding spontaneously without issue and tolerating regular diet. Breast feeding without issue, supplementing with formula per her desire. Reports lochia is like a normal period. Patient is ambulating well. Reports some cramping with . Pain well controlled with Tylenol and Motrin. Voiding and stooling without difficulty. Reports having some difficulties in the past with depression and wishes to start her Paxil again. She is planning a tubal ligation, and declined Depo injection today. OBJECTIVE: VITAL SIGNS: Within normal limits, afebrile. Alert and oriented times three. Respiratory: Regular rate, no accessory muscle use. Heart rate: Regular rate and rhythm, no murmurs, rubs or gallops. Abdomen: Fundus firm at U-2. Soft, NTTP. Extremities: No edema, no calf tenderness. Minimal lochia. ASSESSMENT: Day 1 PLAN: 1. Tylenol and Motrin for pain. 2. Encourage breast feeding and ambulation. 3. Restart Paxil today. 4. Routine nursing care 5. Reviewed signs of preeclampsia, mastitis, endometritis, depression, and DVT/PE. Reviewed nothing in the vagina for 6weeks, and return to office in 6 weeks. VS, I&O, 24H, Fishbone Vital Signs/I&O Vital Signs Date Time Temp Pulse Resp B/P (MAP) Pulse Ox O2 Delivery O2 Flow Rate FiO2 07/10/20 06:00 98.3 62 20 114/67 (83) 97 Room Air I&O- Last 24 Hours up to 6 AM 07/10/20 06:00 Intake Total 2558 ml Output Total 2175 ml Balance 383 ml NEYDA DURHAM CNM Jul 10, 2020 07:14
[2020-07-10] MEDS ORDERED: PARO5TAB PO (08:27)
[2020-07-10] MEDS ORDERED: PARoxetine 10MG TABLET PO SCH (09:00)
[2020-07-10] MEDS ORDERED: PRENATAL VITAMINS CHEWABLE TABLET PO SCH (09:00)
[2020-07-10 18:00] VITALS: BP 125/69
== END 2020-07-10 18:56 | disposition home or self-care (01) | DRG 560 ==
LOC: M LDO 23:28 → M LDI 07-09 00:43 → M OBS 07-09 16:00
PROVIDERS: ADMIT Specialist; ATTEND Specialist
PROC: 10E0XZZ Delivery of Products of Conception, External Approach (ICD-10-PCS; principal; 2020-07-09)
PROC: 3E033VJ Introduction of Other Hormone into Peripheral Vein, Percutaneous Approach (ICD-10-PCS; 2020-07-09)
DX: O69.81X0 Labor and delivery complicated by cord around neck, without compression, not applicable or unspecified (principal); Z37.0 Single live birth; Z3A.39 39 weeks gestation of pregnancy

== ENCOUNTER → 2020-08-31 | Outpatient (CLI) | payer OTHER ==
[~2020-08-31] MED LIST changes: +OMEP40CA97 PO; +PARO5TAB PO; +VITAD400CA FT
== END ==
LOC: M LABSMTC 10:12
PROVIDERS: ATTEND Anesthesiology
DX: Z01.812 Encounter for preprocedural laboratory examination (principal); Z20.822 Contact with and (suspected) exposure to COVID-19

== ENCOUNTER 2020-09-05 08:47 | Day surgery (SDC) | payer OTHER ==
[~2020-09-05] VITALS: Ht 160 cm; Wt 87.5 kg
[~2020-09-05 08:47] MED LIST changes: +LIDOCAINE 1% MDV 20ML VIAL SQ PRN; +LR 1,000 ML IV ONE
[2020-09-05 09:23] LABS: HEMOGLOBIN 12.2 g/dl (12.0-15.5); MEAN CORPUSCULAR HEMOGLOBIN 22.7 pg (27.0-33.0); MEAN CORPUSCULAR HGB CONC 29.8 g/dl (32.0-36.5); MEAN CORPUSCULAR VOLUME 76.2 fl (80.0-96.0); PLATELET COUNT, AUTOMATED 273 10^3/uL (150-450); RED BLOOD COUNT 5.38 10^6/uL (4.00-5.40); WHITE BLOOD COUNT 6.1 10^3/uL (4.0-10.0)
[2020-09-05 09:49] LABS: HCG, SERUM QUALITATIVE NEGATIVE (NEGATIVE)
[2020-09-05] MEDS ORDERED: ROCURONIUM BROMIDE 50 MG/5 ML VIAL As Ordered ONE (10:36)
[2020-09-05] MEDS ORDERED: LIDOCAINE 2% 100MG/5ML SDV (FOR ANES.) As Ordered ONE (10:36)
[2020-09-05] MEDS ORDERED: propofoL 200 MG/20 ML VIAL As Ordered ONE (10:36)
[2020-09-05] MEDS ORDERED: MIDAZOLAM INJ 2MG/2ML VIAL (J2250 PER 1MG) As Ordered ONE (10:37)
[2020-09-05] MEDS ORDERED: fentaNYL 250 MCG/5 ML INJECTION (J3010) As Ordered ONE (10:37)
[2020-09-05] MEDS ORDERED: BUPIVACAINE HCL 0.25% 10ML VIAL As Ordered ONE (11:44)
[2020-09-05] MEDS ORDERED: KETOROLAC 60MG 2ML VIAL As Ordered ONE (11:48)
[2020-09-05] MEDS ORDERED: ONDANSETRON 4MG/2ML VIAL As Ordered ONE ×2 (11:48→13:33)
[2020-09-05] MEDS ORDERED: METOCLOPRAMIDE INJ 10MG/2ML VIAL (J2765 PER 1) As Ordered ONE ×2 (11:48→14:46)
[2020-09-05] MEDS ORDERED: ACETAMINOPHEN 1000MG 100ML IV BTL (OFIRMEV) (J0131 PER 10MG) As Ordered ONE (11:48)
[2020-09-05] MEDS ORDERED: dexameTHASONE 4 MG/ML 1ML VIAL (J1100 PER 1MG) As Ordered ONE (11:48)
[2020-09-05] MEDS ORDERED: SUGAMMADEX SODIUM 500 MG/5 ML VIAL (BRIDION) As Ordered ONE (11:50)
[2020-09-05] MEDS ORDERED: DESFLURANE 240 ML INHALANT As Ordered ONE (12:08)
[2020-09-05] MEDS ORDERED: HYDROmorphone HCL 2 MG/ML 1ML VIAL (J1170) As Ordered ONE (12:13)
[2020-09-05] MEDS ORDERED: LACRILUBE (AKWA TEARS) OPHTH OINT 3.5 GM As Ordered ONE (12:33)
[2020-09-05] MEDS ORDERED: IBUP80TA PO (12:41)
--- NOTE | 2020-09-05 12:41 | ROOPDOC ---
[facility] Report Of Operation Report of Operation Date of procedure: 09/05/2020 Preoperative diagnosis: Satisfied parity. Postoperative diagnosis: Same Procedure: Laparoscopic bilateral salpingectomy Anesthesia: Gen. endotracheal Estimated blood loss 10 mL. Intraoperatively, IV fluids replaced 700 mL lactated Ringer's Drains: In and out catheter 250 mL of urine Complications: None Preoperative antibiotics: None indicated Specimens: Bilateral fallopian tubes Intraoperative findings: 150 mL hemoperitoneum was noted upon entry prior to any laparoscopic dissection (suspect either ruptured hemorrhagic ovarian cyst or retrograde menstruation). . No additional bleeding was noted once this was evacuated/suctioned. Normal size, shape, contour of the uterus. Normal adnexa/ovaries bilaterally. Minimal pelvic adhesions Procedure: The patient was counseled and consented on the risks, benefits, indications, and alternatives of the procedure. Informed consent was obtained. She was taken to the operating room with an IV running. She was placed on the operating table in the dorsal supine position. Gen. anesthesia was administered and the airway was secured without any difficulty. A timeout was performed per protocol. She was prepared and draped in the normal sterile fashion. Attention was turned to the pelvis. The bladder was drained with in and out sterile catheter. A speculum was placed into the vagina with good visualization of the cervix. A single- tooth tenaculum was placed on the anterior lip of the cervix and downward traction was applied. The cervix was sequentially dilated with Hugh dilators up to a #16. A ZUMI uterine manipulator was placed without any difficulty. The single-tooth tenaculum was removed. The tenaculum sites were noted to be hemostatic. A sterile glove switch was performed. Attention was turned to the abdomen. A 5mm umbilical incision was made with the 11 blade. Through this incision, a Veress needle was placed into the intraperitoneal cavity. Intraperitoneal placement was confirmed with ease of flow of normal saline, a positive drop test and no return on aspiration. The opening pressure was 2 mmHg. The abdomen was insufflated with 2 L of CO2. The Veress needle was removed. A 5 mm laparoscopic trocar was placed under direct visualization without any difficulty, and intraperitoneal placement was confirmed. No incidental bleeding or injury was evident. The patient was placed in steep Trendelenburg. 2 additional laparoscopic port sites were placed through 5 mm incisions in the lower left quadrant. Each trocar/cannula was placed under direct visualization without any difficulty, incidental bleeding or injury. 150 mL of blood mixed with clot was noted in the pelvis. I suspect this was present preoperatively, it was due to a hemorrhagic cyst or retrograde menstruation. There was no active bleeding noted within the pelvis/abdomen during a thorough inspection of the intra-abdominal cavity.. There was no reaccumulation of blood within the abdomen and pelvis after the blood was evacuated with the suction retail director. Attention was turned to the right fallopian tube. The right fallopian tube was followed out to the fimbriated end, grasped and elevated. The underlying mesosalpinx was sequentially clamped, coagulated and transected, until the level of the cornu was reached. At this level, the fallopian tube was clamped, coagulated and transected, thus amputating the fallopian tube. The fallopian tube was brought through the cannula without any difficulty and sent to pathology for permanent section. Attention was turned to the left fallopian tube. The left fallopian tube was followed out to the fimbriated end, grasped and elevated. The underlying mesosalpinx was sequentially clamped, coagulated and transected, until the level of the cornu was reached. At this level the fallopian tube was clamped, coagulated and transected, thus amputating the fallopian tube. The fallopian tube was brought to the cannula without any difficulty and sent to pathology for permanent section. Both right and left surgical sites were noted to be completely hemostatic. The gas was released from the abdomen. The patient was taken out of Trendelenburg position. The cannulas were removed. The skin incisions were closed with 4-0 Monocryl in subcuticular fashion and reinforced with Dermabond. The uterine manipulator was removed, the vagina was noted to be clear of any sponge or instrument. Sponge, needle and instrument counts were correct per protocol. The patient tolerated the entire procedure very well. She was transferred to the PACU in good and stable condition. DO OBINNA Clark JONATHAN R. DO Sep 05, 2020 12:41
[2020-09-05] MEDS ORDERED: COLA100C5 PO (12:42)
[2020-09-05] MEDS ORDERED: fentaNYL 100 MCG/2 ML INJECTION (J3010) IV PRN (13:05)
[2020-09-05] MEDS ORDERED: LR 1,000 ML IV SCH ×2 (13:05→13:10)
[2020-09-05] MEDS ORDERED: oxyCODONE 5MG TAB PO PRN (13:05)
[2020-09-05] MEDS ORDERED: ONDANSETRON 4MG/2ML VIAL IV PRN (13:40)
[2020-09-05] MEDS ORDERED: METOCLOPRAMIDE INJ 10MG/2ML VIAL (J2765 PER 1) IV ONE (15:15)
[2020-09-05] MEDS ORDERED: OXYC1TAB23 PO (15:40)
[2020-09-05 15:41] VITALS: BP 118/65
== END 2020-09-05 16:06 | disposition home or self-care (01) ==
LOC: M SDC 08:47
PROVIDERS: ATTEND Obstetrics & Gynecology
DX: Z30.2 Encounter for sterilization (principal); E78.5 Hyperlipidemia, unspecified; K21.9 Gastro-esophageal reflux disease without esophagitis; Z88.2 Allergy status to sulfonamides
CPT/HCPCS: 36415; 58661; 84703; 85027; 86850; 86900; 86901; 88302; J0131; J1100; J1170; J1885; J2250; J2405; J2765; J3010

== ENCOUNTER → 2021-01-22 | Outpatient (REF) | payer OTHER ==
[~2021-01-22] MED LIST changes: +IBUP80TA PO; -LIDOCAINE 1% MDV 20ML VIAL SQ PRN; -LR 1,000 ML IV ONE; +OMEP40CA4 PO; -OMEP40CA97 PO; +OXYC1TAB23 PO
[2021-01-22 16:54] LABS: ALT/SGPT 29 U/L (12-78); BILIRUBIN,DIRECT 0.1 MG/DL (0.0-0.2); BILIRUBIN,TOTAL 0.5 MG/DL (0.2-1.0); BLOOD UREA NITROGEN 11 MG/DL (7-18); CALCIUM LEVEL 8.2 MG/DL (8.5-10.1); CARBON DIOXIDE LEVEL 24 MEQ/L (21-32); CHLORIDE LEVEL 111 MEQ/L (98-107); CHOLESTEROL LEVEL 217 MG/DL (<200); CHOLESTEROL RISK RATIO 4.254 (<5); CREATININE FOR GFR 0.55 MG/DL (0.55-1.30); GLOMERULAR FILTRATION RATE > 60.0 (>60); GLUCOSE, FASTING 80 MG/DL (70-100); HDL CHOLESTEROL 51 MG/DL (>40); LDL CHOLESTEROL 153 MG/DL (<100); NON-HDL-C 166 MG/DL; POTASSIUM SERUM 3.9 MEQ/L (3.5-5.1); SODIUM LEVEL 141 MEQ/L (136-145); TOTAL 25(OH) VITAMIN D 29.1 NG/ML (30.0-100.0); TOTAL PROTEIN 7.3 GM/DL (6.4-8.2); TRIGLYCERIDES LEVEL 63 MG/DL (<150)
== END ==
LOC: M SFHCCLAY 11:40
PROVIDERS: ATTEND Family Medicine
DX: E78.5 Hyperlipidemia, unspecified (principal); E55.9 Vitamin D deficiency, unspecified; Z13.1 Encounter for screening for diabetes mellitus

== ENCOUNTER → 2021-04-18 | Outpatient (REF) | payer OTHER, MEDICAID | LOC: M SFHCWAGY 17:45 | PROVIDERS: ATTEND Advanced Practice Midwife | DX: Z12.4 Encounter for screening for malignant neoplasm of cervix (principal) ==

== ENCOUNTER → 2022-07-30 | Outpatient (REF) | payer OTHER | LOC: M PLALAB 16:28 | PROVIDERS: ATTEND Advanced Practice Midwife | DX: Z12.4 Encounter for screening for malignant neoplasm of cervix (principal); R87.610 Atypical squamous cells of undetermined significance on cytologic smear of cervix (ASC-US) ==

== ENCOUNTER → 2023-08-03 | Outpatient (REF) | payer OTHER ==
[2023-08-03 13:00] LABS: ALBUMIN 3.8 G/DL (3.2-5.2); ALKALINE PHOSPHATASE 56 U/L (46-116); ALT/SGPT 20 U/L (7.0-40); AST/SGOT 8 U/L (<34); BILIRUBIN,TOTAL 0.4 MG/DL (0.3-1.2); BLOOD UREA NITROGEN 12 MG/DL (9-23); CALCIUM LEVEL 9.4 MG/DL (8.5-10.1); CARBON DIOXIDE LEVEL 27 MMOL/L (20-31); CHLORIDE LEVEL 107 MMOL/L (98-107); CHOLESTEROL LEVEL 232 MG/DL (<200); CHOLESTEROL RISK RATIO 4.54 (<5); CREATININE FOR GFR 0.58 MG/DL (0.55-1.30); GLOMERULAR FILTRATION RATE > 60.0 (>60); GLUCOSE, FASTING 82 MG/DL (60-100); LDL CHOLESTEROL 154.4 MG/DL (<100); POTASSIUM SERUM 4.3 MMOL/L (3.5-5.1); SODIUM LEVEL 137 MMOL/L (136-145); TOTAL PROTEIN 7.2 G/DL (5.7-8.2); TRIGLYCERIDES LEVEL 133 MG/DL (<150)
[2023-08-03 13:02] LABS: FREE T4 1.06 NG/DL (0.89-1.76); THYROID STIMULATING HORMONE 1.286 uIU/ML (0.55-4.78)
== END ==
LOC: M SFHCCLAY 08:57
PROVIDERS: ATTEND Nurse Practitioner Family
DX: Z00.00 Encounter for general adult medical examination without abnormal findings (principal); F32.9 Major depressive disorder, single episode, unspecified; K21.9 Gastro-esophageal reflux disease without esophagitis; Z13.220 Encounter for screening for lipoid disorders

== ENCOUNTER → 2023-08-31 | Outpatient (REF) | payer OTHER | LOC: M SFHCWAGY 17:17 | PROVIDERS: ATTEND Nurse Practitioner Family | DX: Z12.4 Encounter for screening for malignant neoplasm of cervix (principal); R87.618 Other abnormal cytological findings on specimens from cervix uteri ==

== ENCOUNTER → 2023-10-12 | Outpatient (REF) | payer OTHER ==
[2023-10-12 17:37] LABS: BASO % 0.6 % (0.0-1.0); EOS # 0.1 10^3/uL (0.0-0.5); HEMATOCRIT 41.1 % (36.0-47.0); LYMPH % 30.6 % (24.0-44.0); MEAN CORPUSCULAR HEMOGLOBIN 25.6 pg (27.0-33.0); MEAN CORPUSCULAR HGB CONC 31.6 g/dl (32.0-36.5); MEAN CORPUSCULAR VOLUME 81.1 fl (80.0-96.0); MONO # 0.4 10^3/uL (0.0-0.8); MONO % 5.9 % (2.0-8.0); NEUTROPHILS % 60.6 % (36.0-66.0); PLATELET COUNT, AUTOMATED 294 10^3/uL (150-450); RED BLOOD COUNT 5.07 10^6/uL (4.00-5.40); WHITE BLOOD COUNT 6.6 10^3/uL (4.0-10.0)
[2023-10-12 17:43] LABS: IRON (FE) 30 UG/DL (50-170); PERCENT SATURATION 7.9 % (13.2-45.0); TOTAL IRON BINDING CAPACITY 382 UG/DL (250-425)
[2023-10-12 17:44] LABS: ALBUMIN 4.2 G/DL (3.2-5.2); ALKALINE PHOSPHATASE 58 U/L (46-116); ALT/SGPT 28 U/L (7.0-40); AST/SGOT 12 U/L (<34); BILIRUBIN,TOTAL 0.4 MG/DL (0.3-1.2); BLOOD UREA NITROGEN 13 MG/DL (9-23); CALCIUM LEVEL 9.2 MG/DL (8.5-10.1); CARBON DIOXIDE LEVEL 26 MMOL/L (20-31); CHLORIDE LEVEL 109 MMOL/L (98-107); CHOLESTEROL LEVEL 169 MG/DL (<200); CHOLESTEROL RISK RATIO 3.49 (<5); CREATININE FOR GFR 0.56 MG/DL (0.55-1.30); GLOMERULAR FILTRATION RATE > 60.0 (>60); GLUCOSE, FASTING 82 MG/DL (60-100); HDL CHOLESTEROL 48.3 MG/DL (>40); LDL CHOLESTEROL 108.9 MG/DL (<100); NON-HDL-C 120.7 MG/DL; SODIUM LEVEL 137 MMOL/L (136-145); TRIGLYCERIDES LEVEL 59 MG/DL (<150)
[2023-10-12 17:45] LABS: FERRITIN 4.7 NG/ML (7.3-270.7)
[2023-10-12 17:46] LABS: FREE T4 0.99 NG/DL (0.89-1.76); THYROID STIMULATING HORMONE 1.208 uIU/ML (0.55-4.78)
[2023-10-12 18:42] LABS: HEMOGLOBIN A1c 4.7 % (4.0-6.0)
== END ==
LOC: M SFHCCLAY 09:43
PROVIDERS: ATTEND Nurse Practitioner Family
DX: R42 Dizziness and giddiness (principal); R06.02 Shortness of breath

== ENCOUNTER → 2023-11-16 | Outpatient (REF) | payer OTHER ==
[2023-11-16 11:38] LABS: BASO # 0.1 10^3/uL (0.0-0.2); BASO % 0.9 % (0.0-1.0); EOS # 0.2 10^3/uL (0.0-0.5); EOS % 2.2 % (0.0-3.0); HEMATOCRIT 41.1 % (36.0-47.0); HEMOGLOBIN 12.7 g/dl (12.0-15.5); LYMPH % 29.1 % (24.0-44.0); MEAN CORPUSCULAR HGB CONC 30.9 g/dl (32.0-36.5); MEAN CORPUSCULAR VOLUME 80.7 fl (80.0-96.0); MONO # 0.4 10^3/uL (0.0-0.8); MONO % 5.9 % (2.0-8.0); NEUTROPHILS # 4.3 10^3/uL (1.5-8.5); NEUTROPHILS % 61.6 % (36.0-66.0); PLATELET COUNT, AUTOMATED 293 10^3/uL (150-450); RED BLOOD COUNT 5.09 10^6/uL (4.00-5.40)
[2023-11-16 12:43] LABS: FERRITIN 11.9 NG/ML (7.3-270.7); PERCENT SATURATION 14.8 % (13.2-45.0)
== END ==
LOC: M SFHCCLAY 08:56
PROVIDERS: ATTEND Nurse Practitioner Family
DX: D50.9 Iron deficiency anemia, unspecified (principal)

== ENCOUNTER 2023-12-27 11:14 | Emergency (ER) | payer OTHER ==
[~2023-12-27] VITALS: Ht 165.1 cm; Wt 79.1 kg
[2023-12-27 11:14] VITALS: TEMP 99.2
[2023-12-27] MEDS ORDERED: FERR325T19 PO (11:27)
[2023-12-27] MEDS ORDERED: PARO20TA3 PO (11:27)
[2023-12-27] MEDS ORDERED: AMOX875T PO (11:27)
[2023-12-27 11:54] LABS: BASO % 0.2 % (0.0-1.0); EOS % 0.1 % (0.0-3.0); HEMATOCRIT 44.8 % (36.0-47.0); HEMOGLOBIN 14.2 g/dl (12.0-15.5); LYMPH # 1.1 10^3/uL (1.5-5.0); LYMPH % 13.3 % (24.0-44.0); MEAN CORPUSCULAR HEMOGLOBIN 25.8 pg (27.0-33.0); MEAN CORPUSCULAR HGB CONC 31.7 g/dl (32.0-36.5); MEAN CORPUSCULAR VOLUME 81.5 fl (80.0-96.0); MONO # 0.7 10^3/uL (0.0-0.8); MONO % 9.1 % (2.0-8.0); NEUTROPHILS # 6.2 10^3/uL (1.5-8.5); NEUTROPHILS % 77.1 % (36.0-66.0); PLATELET COUNT, AUTOMATED 244 10^3/uL (150-450)
[2023-12-27 11:57] LABS: ERYTHROCYTE SEDIMENTATION RATE 19 mm/hr (0-20)
[2023-12-27] MEDS: ACETAMINOPHEN 500 MG TAB PO ONE (13:09)
[2023-12-27] MEDS: KETOROLAC 30 MG/ML 1ML VIAL IV ONE (13:09)
[2023-12-27] MEDS: NS 1,000 ML IV ONE (13:09)
[2023-12-27] MEDS ORDERED: IBUP-1022 PO (13:45)
[2023-12-27 13:50] VITALS: BP 136/76; O2SAT 100
== END 2023-12-27 13:56 | disposition home or self-care (01) ==
LOC: M ED 11:14
DX: S02.5XXA Fracture of tooth (traumatic), initial encounter for closed fracture (principal); K02.9 Dental caries, unspecified; X58.XXXA Exposure to other specified factors, initial encounter; Z88.2 Allergy status to sulfonamides
CPT/HCPCS: 70355; 80047; 84702; 85025; 85652; 86140; 96361; 96374; 99283; J1885

== ENCOUNTER → 2024-01-11 | Outpatient (REF) | payer OTHER ==
[~2024-01-11] MED LIST changes: +AMOX875T PO; +FERR325T19 PO; +IBUP-1022 PO; +PARO20TA3 PO
[2024-01-11 18:51] LABS: BASO # 0.1 10^3/uL (0.0-0.2); BASO % 0.8 % (0.0-1.0); EOS # 0.1 10^3/uL (0.0-0.5); EOS % 1.9 % (0.0-3.0); HEMATOCRIT 42.5 % (36.0-47.0); HEMOGLOBIN 13.4 g/dl (12.0-15.5); LYMPH # 1.7 10^3/uL (1.5-5.0); LYMPH % 29.1 % (24.0-44.0); MEAN CORPUSCULAR HEMOGLOBIN 25.6 pg (27.0-33.0); MEAN CORPUSCULAR HGB CONC 31.5 g/dl (32.0-36.5); MEAN CORPUSCULAR VOLUME 81.3 fl (80.0-96.0); MONO # 0.4 10^3/uL (0.0-0.8); MONO % 6.7 % (2.0-8.0); NEUTROPHILS # 3.6 10^3/uL (1.5-8.5); NEUTROPHILS % 61.2 % (36.0-66.0); PLATELET COUNT, AUTOMATED 274 10^3/uL (150-450); RED BLOOD COUNT 5.23 10^6/uL (4.00-5.40); WHITE BLOOD COUNT 5.9 10^3/uL (4.0-10.0)
[2024-01-11 19:20] LABS: ALBUMIN 4.3 G/DL (3.2-5.2); ALKALINE PHOSPHATASE 61 U/L (46-116); ALT/SGPT 16 U/L (7.0-40); AST/SGOT < 8 U/L (<34); BILIRUBIN,TOTAL 0.7 MG/DL (0.3-1.2); BLOOD UREA NITROGEN 10 MG/DL (9-23); CALCIUM LEVEL 9.4 MG/DL (8.5-10.1); CARBON DIOXIDE LEVEL 26 MMOL/L (20-31); CHLORIDE LEVEL 107 MMOL/L (98-107); CREATININE FOR GFR 0.56 MG/DL (0.55-1.30); FERRITIN 27.7 NG/ML (7.3-270.7); GLOMERULAR FILTRATION RATE > 60.0 (>60); GLUCOSE, FASTING 76 MG/DL (60-100); IRON (FE) 72 UG/DL (50-170); PERCENT SATURATION 20.2 % (13.2-45.0); POTASSIUM SERUM 4.4 MMOL/L (3.5-5.1); SODIUM LEVEL 140 MMOL/L (136-145); TOTAL IRON BINDING CAPACITY 357 UG/DL (250-425); TOTAL PROTEIN 7.1 G/DL (5.7-8.2)
== END ==
LOC: M SFHCCLAY 09:52
PROVIDERS: ATTEND Nurse Practitioner Family
DX: D50.9 Iron deficiency anemia, unspecified (principal)

== ENCOUNTER → 2024-04-19 | Outpatient (REF) | payer OTHER ==
[2024-04-19 18:31] LABS: ALBUMIN 4.2 G/DL (3.2-5.2); ALKALINE PHOSPHATASE 70 U/L (46-116); ALT/SGPT 24 U/L (7.0-40); AST/SGOT 8 U/L (<34); BILIRUBIN,TOTAL 0.7 MG/DL (0.3-1.2); BLOOD UREA NITROGEN 11 MG/DL (9-23); C REACTIVE PROTEIN QUANTITATIV < 0.40 MG/DL (<1.0); CALCIUM LEVEL 9.3 MG/DL (8.5-10.1); CARBON DIOXIDE LEVEL 26 MMOL/L (20-31); CHLORIDE LEVEL 107 MMOL/L (98-107); CHOLESTEROL LEVEL 214 MG/DL (<200); CHOLESTEROL RISK RATIO 4.21 (<5); CREATININE FOR GFR 0.61 MG/DL (0.55-1.30); GLOMERULAR FILTRATION RATE > 60.0 (>60); GLUCOSE, FASTING 77 MG/DL (60-100); HDL CHOLESTEROL 50.8 MG/DL (>40); LDL CHOLESTEROL 150.6 MG/DL (<100); NON-HDL-C 163.2 MG/DL; POTASSIUM SERUM 4.2 MMOL/L (3.5-5.1); SODIUM LEVEL 140 MMOL/L (136-145); THYROID STIMULATING HORMONE 1.394 uIU/ML (0.55-4.78); TOTAL PROTEIN 7.6 G/DL (5.7-8.2); TRIGLYCERIDES LEVEL 63 MG/DL (<150)
== END ==
LOC: M LABDRAWC 17:27
PROVIDERS: ATTEND Internal Medicine Cardiovascular Disease
DX: E78.6 Lipoprotein deficiency (principal); Z82.49 Family history of ischemic heart disease and other diseases of the circulatory system; E78.2 Mixed hyperlipidemia; R06.02 Shortness of breath; Z13.29 Encounter for screening for other suspected endocrine disorder

== ENCOUNTER → 2024-04-19 | Outpatient (REF) | payer OTHER ==
[2024-04-19 17:34] LABS: BASO # 0.1 10^3/uL (0.0-0.2); EOS # 0.2 10^3/uL (0.0-0.5); EOS % 2.6 % (0.0-3.0); HEMOGLOBIN 14.7 g/dl (12.0-15.5); LYMPH % 32.7 % (24.0-44.0); MEAN CORPUSCULAR HEMOGLOBIN 27.3 pg (27.0-33.0); MEAN CORPUSCULAR VOLUME 85.5 fl (80.0-96.0); MONO # 0.4 10^3/uL (0.0-0.8); NEUTROPHILS # 3.5 10^3/uL (1.5-8.5); NEUTROPHILS % 57.5 % (36.0-66.0); PLATELET COUNT, AUTOMATED 268 10^3/uL (150-450); RED BLOOD COUNT 5.38 10^6/uL (4.00-5.40); WHITE BLOOD COUNT 6.2 10^3/uL (4.0-10.0)
[2024-04-19 17:37] LABS: PERCENT SATURATION 29.5 % (13.2-45.0)
[2024-04-19 17:39] LABS: FERRITIN 21.9 NG/ML (7.3-270.7)
== END ==
LOC: M SFHCCLAY 09:26
PROVIDERS: ATTEND Nurse Practitioner Family
DX: D50.9 Iron deficiency anemia, unspecified (principal)

== ENCOUNTER → 2024-07-18 | Outpatient (CLI) | payer OTHER | LOC: M CLY 11:13 | PROVIDERS: ATTEND Nurse Practitioner Family | DX: M25.551 Pain in right hip (principal) ==

== ENCOUNTER → 2024-07-18 | Outpatient (REF) | payer OTHER ==
[2024-07-18 19:14] LABS: BASO # 0.1 10^3/uL (0.0-0.2); BASO % 0.8 % (0.0-1.0); EOS # 0.1 10^3/uL (0.0-0.5); EOS % 1.5 % (0.0-3.0); HEMATOCRIT 40.3 % (36.0-47.0); HEMOGLOBIN 13.3 g/dl (12.0-15.5); LYMPH # 2.7 10^3/uL (1.5-5.0); LYMPH % 33.8 % (24.0-44.0); MEAN CORPUSCULAR HEMOGLOBIN 27.3 pg (27.0-33.0); MEAN CORPUSCULAR VOLUME 82.8 fl (80.0-96.0); MONO # 0.5 10^3/uL (0.0-0.8); MONO % 6.9 % (2.0-8.0); NEUTROPHILS # 4.4 10^3/uL (1.5-8.5); NEUTROPHILS % 56.6 % (36.0-66.0); PLATELET COUNT, AUTOMATED 272 10^3/uL (150-450); RED BLOOD COUNT 4.87 10^6/uL (4.00-5.40); WHITE BLOOD COUNT 7.8 10^3/uL (4.0-10.0)
[2024-07-18 19:35] LABS: PERCENT SATURATION 20.3 % (13.2-45.0)
[2024-07-18 19:37] LABS: FERRITIN 38.4 NG/ML (7.3-270.7)
== END ==
LOC: M SFHCCLAY 10:58
PROVIDERS: ATTEND Nurse Practitioner Family
DX: D50.9 Iron deficiency anemia, unspecified (principal)

== ENCOUNTER → 2024-09-05 | Outpatient (CLI) | payer OTHER | LOC: M SLEEP HO 10:40 | PROVIDERS: ATTEND Physician Assistant | DX: G47.30 Sleep apnea, unspecified (principal) ==

== ENCOUNTER → 2025-03-20 | Outpatient (REF) | payer OTHER ==
[~2025-03-20] MED LIST changes: -IBUP-1022 PO; +IBUP600T42 PO
[2025-03-20 17:43] LABS: ALT/SGPT 39 U/L (7.0-40); AST/SGOT 19 U/L (<34); CALCIUM LEVEL 9.3 MG/DL (8.5-10.1); CARBON DIOXIDE LEVEL 25 MMOL/L (20-31); CHLORIDE LEVEL 107 MMOL/L (98-107); CREATININE FOR GFR 0.62 MG/DL (0.55-1.30); GLOMERULAR FILTRATION RATE > 90.0 (>60); IRON (FE) 48 UG/DL (50-170); PERCENT SATURATION 13.9 % (13.2-45.0); POTASSIUM SERUM 4.3 MMOL/L (3.5-5.1); SODIUM LEVEL 142 MMOL/L (136-145)
[2025-03-20 17:48] LABS: BASO # 0.1 10^3/uL (0.0-0.2); BASO % 0.6 % (0.0-1.0); EOS # 0.2 10^3/uL (0.0-0.5); EOS % 1.8 % (0.0-3.0); LYMPH # 2.8 10^3/uL (1.5-5.0); LYMPH % 30.0 % (24.0-44.0); MONO # 0.6 10^3/uL (0.0-0.8); MONO % 6.3 % (2.0-8.0); NEUTROPHILS # 5.7 10^3/uL (1.5-8.5); NEUTROPHILS % 61.0 % (36.0-66.0); PLATELET COUNT, AUTOMATED 344 10^3/uL (150-450)
== END ==
LOC: M SFHCCLAY 09:15
PROVIDERS: ATTEND Nurse Practitioner Family
DX: Z00.00 Encounter for general adult medical examination without abnormal findings (principal); D50.9 Iron deficiency anemia, unspecified; R42 Dizziness and giddiness; F32.9 Major depressive disorder, single episode, unspecified; K21.9 Gastro-esophageal reflux disease without esophagitis; G43.909 Migraine, unspecified, not intractable, without status migrainosus; J45.20 Mild intermittent asthma, uncomplicated